=== PATIENT | female | born 1945 | race Caucasian/White ===

== ENCOUNTER 2016-11-26 20:32 | Emergency (ER) | payer MEDICARE ==
[~2016-11-26] VITALS: Ht 167.6 cm; Wt 90.7 kg
[~2016-11-26 20:32] MED LIST: ASPIR 8181 MG ORAL
[2016-11-26 21:55] LABS: BASOPHILS % (AUTO) 0.4 % (0.0-2.0); EOSINOPHILS % (AUTO) 0.8 % (0.0-3.0); LYMPHOCYTES % (AUTO) 13.3 % (20.0-45.0); MEAN CORPUSCULAR HEMOGLOBIN 28.9 PG (27.0-31.0); MEAN CORPUSCULAR HGB CONC 31.5 G/DL (32.0-36.0); MEAN CORPUSCULAR VOLUME 92 FL (80-99); MEAN PLATELET VOLUME 6.9 FL (6.5-10.1); MONOCYTES % (AUTO) 3.8 % (1.0-10.0); NEUTROPHILS % (AUTO) 81.7 % (45.0-75.0); PLATELET COUNT 296 K/UL (150-450); RED BLOOD COUNT 4.69 M/UL (4.20-5.40); RED CELL DISTRIBUTION WIDTH 12.8 % (11.6-14.8); WHITE BLOOD COUNT 17.3 K/UL (4.8-10.8)
[2016-11-26 22:00] VITALS: BP 154/65
[2016-11-26 22:08] LABS: ALANINE AMINOTRANSFERASE 21 U/L (3-33); ALBUMIN/GLOBULIN RATIO 1.3 (1.0-2.7); ANION GAP 15 (5-15); ASPARTATE AMINO TRANSFERASE 25 U/L (5-40); CALCIUM 9.6 mg/dL (8.6-10.2); CARBON DIOXIDE 28 mEQ/L (20-30); CHLORIDE 97 mEQ/L (98-107); CREATININE 0.9 mg/dL (0.5-0.9); GLOMERULAR FILTRATION RATE > 60 mL/min (>60); HEMOLYSIS 13; SODIUM 140 mEQ/L (135-145); TOTAL PROTEIN 7.3 g/dL (6.6-8.7)
--- NOTE | 2016-11-26 22:11 | Emergency Room Report ---
History of Present Illness General Chief Complaint: Multiple Trauma/Fall Source: Patient, EMS Present Illness HPI This patient tripped and fell down 6 steps. She complains of back pain and pelvic pain. The pain is worse with movement. She did receive morphine en route by EMS and the pain is child will she does not move. She denies head injury or trauma. She denies headache or blurry vision. She denies neck pain. She denies loss of consciousness. She did not have any prodromal symptoms such as chest pain or palpitations or lightheadedness. She denies recent illness. She has no other complaints. Allergies: Coded Allergies: No Known Allergies (Unverified , 11/26/16) Patient History Past Medical History: see triage record Social History: Denies: alcohol use, drug use, smoking Reviewed Nursing Documentation: PMH: Agreed, PSxH: Agreed Nursing Documentation-PMH Past Medical History: No Stated History Review of Systems All Other Systems: negative except mentioned in HPI Physical Exam Vital Signs Date Time Temp Pulse Resp B/P Pulse Ox O2 Delivery O2 Flow Rate FiO2 11/26/16 20:28 98.8 88 16 212/102 99 Room Air Sp02 EP Interpretation: reviewed, normal General Appearance: no apparent distress, alert, GCS 15, non-toxic Head: normocephalic, atraumatic Eyes: bilateral eye PERRL, bilateral eye normal inspection ENT: hearing grossly normal, normal pharynx, no angioedema, normal voice Neck: full range of motion, supple/symm/no masses Respiratory: chest non-tender, lungs clear, normal breath sounds, speaking full sentences Cardiovascular #1: regular rate, rhythm, no edema Gastrointestinal: normal bowel sounds, non tender, soft, non-distended, no guarding, no rebound Rectal: deferred Musculoskeletal: tender - TTP L-spine and sacrum. +pain w/ ROM of BLE or torso Neurologic: alert, oriented x3, responsive, motor strength/tone normal, sensory intact, speech normal Psychiatric: judgement/insight normal, memory normal, mood/affect normal, no suicidal/homicidal ideation Skin: normal color, no rash, warm/dry, well hydrated Medical Decision Making Diagnostic Impression: Primary Impression: Fracture of sacrum Additional Impression: Bilateral pubic rami fractures ER Course This patient has a mechanical fall downstairs. She suffered a sacral, multiple pubic rami and a possible left acetabular fracture. She's a 71-year-old female and is unable to ambulate. She lives with her elderly mother who she is the primary caregiver for her. She also has stairs in her home. This patient will be admitted for pain control and further evaluation for rehabilitation. Labs Test 11/26/16 21:34 White Blood Count 17.3 K/UL (4.8-10.8) Red Blood Count 4.69 M/UL (4.20-5.40) Hemoglobin 13.6 G/DL (12.0-16.0) Hematocrit 43.0 % (37.0-47.0) Mean Corpuscular Volume 92 FL (80-99) Mean Corpuscular Hemoglobin 28.9 PG (27.0-31.0) Mean Corpuscular Hemoglobin Concent 31.5 G/DL (32.0-36.0) Red Cell Distribution Width 12.8 % (11.6-14.8) Platelet Count 296 K/UL (150-450) Mean Platelet Volume 6.9 FL (6.5-10.1) Neutrophils (%) (Auto) 81.7 % (45.0-75.0) Lymphocytes (%) (Auto) 13.3 % (20.0-45.0) Monocytes (%) (Auto) 3.8 % (1.0-10.0) Eosinophils (%) (Auto) 0.8 % (0.0-3.0) Basophils (%) (Auto) 0.4 % (0.0-2.0) Prothrombin Time 10.0 SEC (9.30-11.50) Prothromb Time International Ratio 1.0 (0.9-1.1) Activated Partial Thromboplast Time 24 SEC (23-33) Sodium Level 140 mEQ/L (135-145) Potassium Level 4.0 mEQ/L (3.4-4.9) Chloride Level 97 mEQ/L (98-107) Carbon Dioxide Level 28 mEQ/L (20-30) Anion Gap 15 (5-15) Blood Urea Nitrogen 24 mg/dL (7-23) Creatinine 0.9 mg/dL (0.5-0.9) Estimat Glomerular Filtration Rate > 60 mL/min (>60) Glucose Level 125 mg/dL (74-106) Calcium Level 9.6 mg/dL (8.6-10.2) Total Bilirubin 0.3 mg/dL (0.0-1.2) Aspartate Amino Transf (AST/SGOT) 25 U/L (5-40) Alanine Aminotransferase (ALT/SGPT) 21 U/L (3-33) Alkaline Phosphatase 74 U/L (35-104) Total Protein 7.3 g/dL (6.6-8.7) Albumin 4.2 g/dL (3.5-5.2) Globulin 3.1 g/dL Albumin/Globulin Ratio 1.3 (1.0-2.7) CT/MRI/US Diagnostic Results CT/MRI/US Diagnostic Results : Imaging Test Ordered: CT pelvis, T-spine, L-spine Impression L. sacral fx. R. superior and inferior pubic rami fx. L. inferior pubic rami fx. Suspected fx of anterior L. acetabulum. Last Vital Signs Date Time Temp Pulse Resp B/P Pulse Ox O2 Delivery O2 Flow Rate FiO2 11/26/16 20:28 98.8 88 16 212/102 99 Room Air Disposition: XFER T-TRM HOSP Condition: Stable GUILLAUME PAREDES D.O. Nov 26, 2016 22:11
[2016-11-26] MEDS ORDERED: Morphine Sulfate 4mg/ml Inj IVP ONE (23:30)
[2016-11-27] LABS: APPEARANCE,URINE CLEAR; KETONES,URINE 1+ (NEGATIVE); LEUKOCYTE ESTERASE ,URINE 1+ (NEGATIVE); NITRITE,URINE NEGATIVE (NEGATIVE); PH,URINE 5 (4.5-8.0); PROTEIN,URINE 1+ (NEGATIVE); UROBILINOGEN,URINE NORMAL MG/DL (0.0-1.0)
[2016-11-27 00:31] LABS: BACTERIA,URINE FEW /HPF; RBC,URINE 0-2 /HPF (0 - 2); SQUAMOUS EPITHELIAL CELL,UR FEW /LPF (NONE/OCC); WBC,URINE 0-2 /HPF (0 - 2)
[2016-11-27 00:50] VITALS: BP 160/70
[2016-11-27] MEDS ORDERED: Morphine Sulfate 4mg/ml Inj IVP ONE (02:15)
[2016-11-27 02:30] VITALS: BP 155/74
[2016-11-27 03:29] VITALS: BP 135/64
[2016-11-27 03:34] VITALS: BP 135/64
--- NOTE | 2016-11-27 09:44 | Diagnostic Imaging Report ---
Indications: Fall down flight of stairs, low back injury and pain Technique: Continuous helical CT imaging of the lumbar spine was performed with automatic exposure control on a Siemens sensation [address] scanner. Axial, coronal, and sagittal images were reconstructed at 3 mm slice thicknesses. CTDI volume(s): 20 mGy Total DLP: 554 mGy-cm Findings: Comparison: None Vertebral alignment is intact. No fracture, facet subluxation or dislocation, paraspinous soft tissue abnormality, or other acute change identified. Osteophytes at the margins of each disc space without significant narrowing. Lower facet joints sclerotic and hypertrophied. Suggestion of mild spinal stenosis at L4-5. Scattered arterial mural calcifications. IMPRESSION: No evidence of acute lumbar injury Degenerative spondylosis with suggestion of mild spinal stenosis at L4-5 Arteriosclerosis This correlates with Dr. Rivera's preliminary report.
--- NOTE | 2016-11-27 09:54 | Diagnostic Imaging Report ---
Indications: Fall down flight of stairs, back injury and pain Technique: Continuous helical CT imaging of the thoracic spine was performed with automatic exposure control on a Siemens sensation [address] scanner. Axial, coronal, and sagittal images were reconstructed at 3 mm slice thicknesses. CTDI volume(s): 28 mGy Total DLP: 942 mGy-cm Findings: Comparison: None Vertebral and intact. No fracture, facet subluxation or dislocation, paraspinous soft tissue abnormality, or other acute change identified. Osteophytes at the margins of multiple disc spaces. C7 right facet joint sclerotic and hypertrophied. Small circumscribed sclerotic focus in the right transverse process of T2. No obvious spinal stenosis. Impression: No evidence of acute injury to the thoracic spine Degenerative spondylosis T2 sclerotic lesion most likely bone island. Metastasis not entirely excludable. Correlate clinically. This correlates with Dr. Rivera's preliminary report.
--- NOTE | 2016-11-27 10:44 | Diagnostic Imaging Report ---
Indications: Head trauma, pain Technique: Continuous helical CT imaging of the brain was performed with automatic exposure control on a Siemens sensation [address] scanner. Axial and coronal images were reconstructed at 5 mm slice thickness and interval. CTDI volume(s): 70 mGy Total DLP: 1439 mGy-cm Findings: Comparison: None. Intracranial anatomy is unremarkable. No evidence of mass or hemorrhage, other attenuation abnormality, mass effect, midline shift, hydrocephalus or increased intracranial pressure. Bone window images are unremarkable. Mucoperiosteal thickening involves the left maxillary, frontal, ethmoid sinuses. The left maxillary sinus appears completely opacified and somewhat expanded. Continuous soft tissue density is present in the cephalad aspect of the left nasal passage. Remainder visualized paranasal sinuses, bilateral Mastoid air cells are clear. IMPRESSION: No evidence of acute injury Left-sided paranasal sinusitis with suggestion of left maxillary mucocele, adjacent nasal polyposis This correlates with [facility] preliminary report. The CT scanner at [facility] is accredited by the [employer] and the scans are performed using protocols designed to limit radiation exposure to as low as reasonably achievable to attain images of sufficient resolution adequate for diagnostic evaluation.
--- NOTE | 2016-12-04 14:57 | Diagnostic Imaging Report ---
Indication: Chest trauma, pain Technique: Single portable AP view of the chest. Findings: Comparison: None. Linear densities left upper lung. Right lung clear. The bones and extra pulmonary soft tissues, cardiomediastinal silhouette, pulmonary vasculature, and pleural surfaces are unremarkable. IMPRESSION: Subsegmental atelectasis versus scarring left upper lung Otherwise negative portable AP chest.
--- NOTE | 2016-12-04 14:58 | Diagnostic Imaging Report ---
Indications: Fall down flight of stairs, pelvic injury and pain Technique: Continuous helical CT imaging of the pelvis was performed with automatic exposure control on a Siemens sensation [address] scanner. Axial, coronal, sagittal images reconstructed at 3 mm slice thickness. CTDI volume(s): 21 mGy Total DLP: 655 mGy-cm Findings: Comparison: None Nondisplaced fracture left sacral wing. No obvious extension to sacral neural foramina. Nondisplaced fracture anterior column left acetabulum. Mildly displaced and comminuted fracture medial aspect right superior ischiopubic ramus. Mildly displaced segmental fracture right inferior ischiopubic ramus. Nondisplaced fracture left inferior ischiopubic ramus. Bilateral sacroiliac and hip joints, pubic symphysis intact. Increased soft tissue density between pubic symphysis and urinary bladder. Multiple diverticula in sigmoid colon. Nodular calcifications in uterus. Scattered arterial mural calcifications. Vascular patency indeterminate. IMPRESSION: Multiple pelvic fractures as described, stable Small retropubic hematoma Colonic diverticulosis Arteriosclerosis Probable degenerated uterine fibroid This correlates with Dr. Rivera's preliminary report.
== END 2016-11-27 03:48 | disposition short-term general hospital (02) ==
LOC: EDBD 20:32 → EMR 21:15
DX: S32.10XA Unspecified fracture of sacrum, initial encounter for closed fracture (principal); S32.592A Other specified fracture of left pubis, initial encounter for closed fracture; S32.591A Other specified fracture of right pubis, initial encounter for closed fracture; W10.9XXA Fall (on) (from) unspecified stairs and steps, initial encounter; Y92.9 Unspecified place or not applicable; Y99.8 Other external cause status
CPT/HCPCS: 36415; 70450; 71010; 72128; 72131; 72192; 80053; 81001; 85025; 85610; 85730; 96374; 96375; 99285; J2270; J2405